=== PATIENT | male | born 1980 | race African-American/Black ===

== ENCOUNTER 2019-12-11 08:51 | Emergency (ER) | payer OTHER ==
[~2019-12-11] VITALS: Ht 170.2 cm; Wt 73.9 kg
[2019-12-11 10:24] LABS: AMPHETAMINES SCREEN,URINE NEGATIVE (NEGATIVE); PHENCYCLIDINE SCREEN,URINE NEGATIVE (NEGATIVE)
[2019-12-11 10:25] LABS: BENZODIAZEPINES SCREEN,URINE NEGATIVE (NEGATIVE)
[2019-12-11 10:28] LABS: BILIRUBIN,URINE NEGATIVE (NEGATIVE); CLARITY,URINE HAZY (CLEAR); COLOR,URINE YELLOW (YELLOW); KETONES,URINE NEGATIVE (NEGATIVE); LEUKOCYTE ESTERASE ,URINE NEGATIVE (NEGATIVE); NITRITE,URINE NEGATIVE (NEGATIVE); PROTEIN,URINE DIPSTICK NEGATIVE (NEGATIVE); URINE UROBILINOGEN 1 mg/dL (0.2 - 1); WBC,URINE (MAN) 0-5 /HPF (0-5)
[2019-12-11 10:29] LABS: BACTERIA,URINE FEW /HPF; EPITHELIAL CELLS,URINE FEW /LPF; RBC,URINE 0-5 /HPF (0-5)
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
== END 2019-12-11 10:55 | disposition home or self-care (01) ==
LOC: ER 09:50
DX: R30.0 Dysuria (principal); F99 Mental disorder, not otherwise specified
CPT/HCPCS: 80307; 81001; 87086; 99283

== ENCOUNTER 2019-12-18 19:00 | Emergency (ER) | payer OTHER ==
[~2019-12-18] VITALS: Ht 170.2 cm; Wt 73.9 kg
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
--- OUTSIDE RECORDS SUMMARY | 2019-12-18 19:52 | XMS REPORT | Continuity of Care Document ---
Author Author [facility] Organization [facility] Address [address] [place] [address] Phone Unavailable Care Team Providers Care Pathology Supervisor Name Role Phone NONSTAFF PCP Unavailable Valery Lopez Attphys MARINA SILVER M.D. Attphys Unavailable SHINE MITCHELL M.D. Attphys Unavailable Shine Mitchell Attphys Kevin Park Attphys Niall Montejo Attphys Payers Payer Name Policy Type Policy Number Effective Date Expiration Date S ziyad [employer] [id number] 2011 00:00:00 2020 00:00:00 [facility] Problems Condition Name Condition Details Condition Category Status Onset Date Resolution Date Last Treatment Date Treating Clinician Comments Source PIEDAD WHITTENSC H Active 09/30/2019 [facility] Diagnosis Active 2019-09-30 00:00:00 2019-10-07 21:56:00 Lakeisha Pike RIGHT LEG PAIN RIGH T LEG PAIN Active 01/25/2016 [facility] Diagnosis Active 2016-01-25 00:00:00 2016-01-25 17:55:00 [facility] Dys[facility] Problem Active [facility] Hyperprolactinemia Hyperprolactinemia Problem Active [facility] History of Cellulitis, leg History of Cellulitis, leg Problem Resolved [facility] Schizophrenia Schizophrenia Problem Active [facility] Depression Depression Problem Active [facility] Hypothyroidism Hypothyroidism Problem Active [facility] Hypogonadotropic hypogonadism Hypogonadotropic hypogonadism Problem Active [facility] ACTH elevation ACTH elevation Problem Active [facility] Follow up Follow up Problem Active [facility] Other specified disorders of nose and nasal sinuses Other specified disorders of nose and nasal sinuses 08/19/2017 [id number] Problem 2017-08-19 12:39:51 In domi Pike BACK,SIDE/NECK PAIN BACK ,SIDE/NECK PAIN Active [facility] Diagnosis Active 2013-12-16 09:46:00 [facility] BACK/SIDE/NECK PAIN BACK /SIDE/NECK PAIN Active [facility] Diagnosis Active 2014-01-07 07:52:00 [facility] Hyperprolactinemia Hype rprolactinemia 05/17/2017 08/19/2017 [id number] Problem 2017-05-17 05:25:07 2017-08-19 12:39:51 2017-08-19 12:39:51 [facility] Discharge Diagnosis: Cellulitis of leg, right Discharge Diagnosis: Cellulitis of leg, right 01/25/2016 01/28/2016 [facility] Problem 2016-01-25 05:00:00 2016-01-28 03:48:01 2016-01-28 03:48:01 [facility] Allergies, Adverse Reactions, Alerts Allergy Name Allergy Type Status Severity Reaction(s) Onset Date Inacti ve Date Treating Clinician Comments Source haloperidol DA Active U 2019-10-06 00:00:00 [facility] Haldol Haldol Active [facility] damaris Family History Family Member Diagnosis Comments Start Date Stop Date Source Mother Family history of hypertension [facility] Social History Social Habit Start Date Stop Date Quantity Comments Source Sex Assigned At 1980 00:00:00 1980 00:00:00 Male [facility] Smoking Status Start Date Stop Date Source Smokes tobacco daily (finding) [facility] Social History 2016-01-25 21:06:47 2016-01-25 21:06:47 [facility] Medications Ordered Medication Name Filled Medication Name Start Date Stop Da te Current Medication? Ordering Clinician Indication Dosage Frequency Signature (SIG) Comments Components Source Magnesium Sulfate 2019-10-01 22:21:00 No 2 gm, Route: IV, ONCE, Dosing Weight 72.727, kg, Priority: STAT, Start date: 10/01/19 17:21:00 CDT, Stop date: 10/01/19 17:21:00 CDT Varghese diallo Shahzad Testosterone 20.25 MG/ACT (1.62%) Transdermal Gel Test osterone 20.25 MG/ACT (1.62%) Transdermal Gel 2019-01-30 00:00:00 Yes MARINA SILVER M.D. Apply 1 pump press to one upper arm and shoulder, then apply 1 pump press to the opposite upper arm and shoulder once daily in the morning [facility] Venlafaxine HCl ER 150 MG Oral Capsule Extended Releas e 24 Hour Venlafaxine HCl ER 150 MG Oral Capsule Extended Release 24 Hour 2017-09-12 00:00:00 Yes SHINE MITCHELL M.D. QD TAKE 1 CAPSULE ONCE DAILY WITH FOOD. [facility] traZODone HCl - 100 MG Oral Tablet traZODone HCl - 100 MG Or al Tablet 2017-09-12 00:00:00 Yes SHINE MITCHELL M.D. 1 TAKE 1 TABLET AT BEDTIME. [facility] clindamycin 300 mg oral capsule 2016-01-25 23:19:00 Yes 300 mg = 1 cap, PO, Q6H, X 14 day, # 56 cap, 0 Refill(s) Lakeisha Pike Clindamycin 2016-01-25 22:52:00 No Notes: (clindamycin 150 mg/1 ml (600 mg/4 ml VL) INJ) (Same As: Cleocin) Lakeisha Pike Motrin 2016-01-25 17:17:00 No Notes: (Same as: Motrin) "Do Not Crush" Take with food. Lakeisha Pike Acetaminophen 300 MG / Codeine Phosphate 30 MG Oral Tablet [Tylenol with Codeine #3] 2016-01-25 17:17:00 No Notes: Do not exceed 4gm/day of acetaminophen. (Same as: Tylenol with Codeine # 3) Lakeisha Pike Benztropine Mesylate 2 MG Oral Tablet Benztropine Mesylate 2 MG Ora l Tablet Yes 1 Q0.3333D TAKE 1 TABLET 3 TIMES DAILY [facility] Depakote 500 MG Oral Tablet Delayed Release Depakote 5 00 MG Oral Tablet Delayed Release Yes Q0.3333D TAKE 1 TABLET 3 TIMES DAILY . [facility] Lisinopril 20 MG Oral Tablet Lisinopril 20 MG Oral Tablet Yes [facility] Singulair 10 MG Oral Tablet Singulair 10 MG Oral Tablet Yes [facility] Levothyroxine Sodium 25 MCG Oral Tablet Levothyroxine Sodium 25 MCG Oral Tablet Yes MARINA SILVER M.D. 1 QD TAKE 1 TABLET DAILY. [facility] Vital Signs Vital Name Observation Time Observation Value Comments Source Weight 2019-12-11 09:32:00 163 [lb_av] [facility] BMI (Body Mass Index) 2019-12-11 09:32:00 25.5 kg/m2 [facility] Temperature Oral (F) 2019-10-02 23:28:00 99.2 F [facility] Heart Rate 2019-10-02 23:28:00 [facility] Respitory Rate 2019-10-02 23:28:00 [facility] [place] Systolic (mm Hg) 2019-10-02 23:28:00 Jose M [facility] [place] Diastolic (mm Hg) 2019-10-02 23:28:00 [facility] Temperature Oral (F) 2019-10-02 18:15:00 98.4 F [facility] Heart Rate 2019-10-02 18:15:00 [facility] Respitory Rate 2019-10-02 18:15:00 [facility] Systolic (mm Hg) 2019-10-02 18:15:00 Jose M [facility] [place] Diastolic (mm Hg) 2019-10-02 18:15:00 [facility] [place] Heart Rate 2019-10-02 16:00:00 [facility] Respitory Rate 2019-10-02 16:00:00 [facility] [place] Systolic (mm Hg) 2019-10-02 16:00:00 Jose M rial [facility] Diastolic (mm Hg) 2019-10-02 16:00:00 Mem [facility] Temperature Oral (F) 2019-10-02 12:20:00 98.1 F [facility] Height 2019-09-30 22:50:00 172.72 cm [facility] BMI Calculated 2019-09-30 22:50:00 Lan Rendon Weight 2019-09-30 22:50:00 [facility] BP Systolic 2019-02-05 10:04:00 124 mm[Hg] Location: LUE; Positi on: Sitting [facility] BP Diastolic 2019-02-05 10:04:00 79 mm[Hg] Location: LUE; Positi on: Sitting [facility] Height 2019-02-05 10:04:00 69 [in_us] [facility] Weight 2019-02-05 10:04:00 215 [lb_av] [facility] Body Mass Index Calculated 2019-02-05 10:04:00 31.75 kg/m2 [facility] Temperature 2019-02-05 10:04:00 97.2 [degF] Method: Temporal [facility] Heart Rate 2019-02-05 10:04:00 72 /min Location: L Brachial Artery; Quality: Normal [facility] Respiration Rate 2019-02-05 10:04:00 14 /min Quality: Normal [facility] O2 SAT 2019-02-05 10:04:00 98 % Source: RA [facility] BP Systolic 2018-03-13 10:38:00 118 mm[Hg] Location: RUE; Positi on: Sitting [facility] BP Diastolic 2018-03-13 10:38:00 75 mm[Hg] Location: RUE; Positi on: Sitting [facility] Height 2018-03-13 10:38:00 69 [in_us] [facility] Weight 2018-03-13 10:38:00 247.25 [lb_av] [facility] Body Mass Index Calculated 2018-03-13 10:38:00 36.51 kg/m2 [facility] Temperature 2018-03-13 10:38:00 97.8 [degF] Method: Tympanic [facility] Heart Rate 2018-03-13 10:38:00 87 /min [facility] Respiration Rate 2018-03-13 10:38:00 16 /min [facility] BP Systolic 2018-01-22 08:38:00 130 mm[Hg] Location: LUE; Positi on: Sitting [facility] BP Diastolic 2018-01-22 08:38:00 88 mm[Hg] Location: NORA; Positi on: Sitting [facility] Height 2018-01-22 08:38:00 69 [in_us] [facility] Weight 2018-01-22 08:38:00 240.25 [lb_av] [facility] Body Mass Index Calculated 2018-01-22 08:38:00 35.48 kg/m2 [facility] Temperature 2018-01-22 08:38:00 96.9 [degF] Method: Tympanic [facility] Heart Rate 2018-01-22 08:38:00 80 /min [facility] Respiration Rate 2018-01-22 08:38:00 15 /min [facility] BP Systolic 2017-12-26 10:11:00 137 mm[Hg] Location: NORA; Positi on: Sitting [facility] BP Diastolic 2017-12-26 10:11:00 84 mm[Hg] Location: NORA; Positi on: Sitting [facility] Height 2017-12-26 10:11:00 69 [in_us] [facility] Weight 2017-12-26 10:11:00 245 [lb_av] [facility] Body Mass Index Calculated 2017-12-26 10:11:00 36.18 kg/m2 [facility] Temperature 2017-12-26 10:11:00 98.8 [degF] [facility] Heart Rate 2017-12-26 10:11:00 101 /min [facility] Respiration Rate 2017-12-26 10:11:00 16 /min [facility] BP Systolic 2017-09-12 10:47:00 130 mm[Hg] Location: RUAshley; Positi on: Sitting [facility] BP Diastolic 2017-09-12 10:47:00 90 mm[Hg] Location: RUAshley; Positi on: Sitting [facility] Height 2017-09-12 10:47:00 69 [in_us] [facility] Weight 2017-09-12 10:47:00 246 [lb_av] [facility] Body Mass Index Calculated 2017-09-12 10:47:00 36.33 kg/m2 [facility] Heart Rate 2017-09-12 10:47:00 91 /min [facility] Respiration Rate 2017-09-12 10:47:00 14 /min [facility] BP Systolic 2017-06-05 09:08:00 118 mm[Hg] Location: LUE; Positi on: Sitting [facility] BP Diastolic 2017-06-05 09:08:00 80 mm[Hg] Location: LUE; Positi on: Sitting [facility] Height 2017-06-05 09:08:00 69 [in_us] [facility] Weight 2017-06-05 09:08:00 248.375 [lb_av] [facility] Body Mass Index Calculated 2017-06-05 09:08:00 36.68 kg/m2 [facility] Temperature 2017-06-05 09:08:00 98.2 [degF] Method: Tympanic [facility] Heart Rate 2017-06-05 09:08:00 88 /min [facility] Respiration Rate 2017-06-05 09:08:00 16 /min [facility] BP Systolic 2017-05-01 10:19:00 129 mm[Hg] Location: RUE; Positi on: Sitting [facility] BP Diastolic 2017-05-01 10:19:00 85 mm[Hg] Location: RUE; Positi on: Sitting [facility] Height 2017-05-01 10:19:00 69 [in_us] [facility] Weight 2017-05-01 10:19:00 249.25 [lb_av] [facility] Body Mass Index Calculated 2017-05-01 10:19:00 36.81 kg/m2 [facility] Temperature 2017-05-01 10:19:00 97.4 [degF] Method: Tympanic [facility] Heart Rate 2017-05-01 10:19:00 73 /min [facility] Respiration Rate 2017-05-01 10:19:00 16 /min [facility] BP Systolic 2017-04-03 09:52:00 129 mm[Hg] Location: RUE; Positi on: Sitting [facility] BP Diastolic 2017-04-03 09:52:00 85 mm[Hg] Location: RUE; Positi on: Sitting [facility] Height 2017-04-03 09:52:00 69 [in_us] [facility] Weight 2017-04-03 09:52:00 247.375 [lb_av] [facility] Body Mass Index Calculated 2017-04-03 09:52:00 36.53 kg/m2 [facility] Temperature 2017-04-03 09:52:00 97.5 [degF] Method: Tympanic [facility] Heart Rate 2017-04-03 09:52:00 80 /min [facility] Respiration Rate 2017-04-03 09:52:00 16 /min [facility] Systolic (mm Hg) 2016-01-25 23:20:00 Jose M rial [facility] Diastolic (mm Hg) 2016-01-25 23:20:00 [facility] [place] Respitory Rate 2016-01-25 23:20:00 [facility]ori [facility] Heart Rate 2016-01-25 23:20:00 [facility] [place] Temperature Oral (F) 2016-01-25 23:20:00 98.0 F [facility] Weight 2016-01-25 17:10:00 [facility] [place] Height 2016-01-25 17:10:00 175.26 cm [facility] BMI Calculated 2016-01-25 17:10:00 [facility] [place] Respitory Rate 2016-01-25 17:10:00 [facility] [place] Heart Rate 2016-01-25 17:10:00 [facility] [place] Systolic (mm Hg) 2016-01-25 17:10:00 Jose M rial [facility] Diastolic (mm Hg) 2016-01-25 17:10:00 Mem [facility] Temperature Oral (F) 2016-01-25 17:10:00 98.1 F [facility] Procedures Procedure Date / Time Performed Performing Clinician Sour e [QL] TESTOSTERONE, TOTAL 2019-05-15 00:00[facility]00 [facility]] ACTH, PLASMA 2019-02-05 00:00:00 [facility] [[facility]] CORTISOL, TOTAL 2019-02-05 00:00:00 Univer [facility] [[facility]] PROLACTIN 2019-02-05 00:00:00 [place] [facility] [[facility]] TSH, 3RD GENERATION W/REFLEX TO FT4 2019-02-05 00:00:00 [facility] [[facility]] TESTOSTERONE, TOTAL 2019-01-30 00:00:00 [facility] [QL] Hemoglobin and Hematocrit 2018-03-13 00:00:00 [facility] [[facility]] TESTOSTERONE, FREE AND TOTAL, LC/MS/MS 2018-03-13 00:00:00 [facility] [QL] BASIC METABOLIC PANEL W/EGFR 2018-03-13 00:00:00 [facility] [H] Cortisol Saliva 2018-01-22 00:00:00 [facility] [H] Cortisol Free Urine 24 Hour 2018-01-22 00:00:00 [facility] [LH] CBC (without differential) 2018-01-22 00:00:00 [facility] [QL[facility]] PSA, TOTAL 2018-01-22 00:00:00 [facility] [QH] SEX HORMONE BINDING GLOBULIN 2018-01-22 00:00:00 [facility] [H] Cortisol Free Urine 24 Hour 2017-12-31 00:00:00 [facility] [[facility]] PROLACTIN 2017-12-26 00:00:00 [place] [facility] [[facility]] TSH, 3RD GENERATION W/REFLEX TO FT4 2017-12-26 00:00:00 [facility] [[facility]] T4, FREE 2017-12-26 00:00:00 [place] [facility] [[facility]] TESTOSTERONE, FREE AND TOTAL, LC/MS/MS 2017-12-26 00:00:00 [facility] [QL] ACTH, PLASMA 2017-12-26 00:00:00 [facility] [[facility]] CORTISOL, TOTAL 2017-12-26 00:00:00 [facility] [QL[facility]] IGF-1 [Somatomedin C] 2017-12-26 00:00:00 [facility] [[facility]] FSH 2017-12-26 00:00:00 [place] [facility] [[facility]] LH 2017-12-26 00:00:00 [place] [facility] [[facility]] TSH, 3RD GENERATION W/REFLEX TO FT4 2017-09-12 00:00:00 [facility] [QL[facility]] T4, FREE 2017-09-12 00:00:00 [facility] [[facility]] PROLACTIN 2017-09-12 00:00:00 [facility] [H] Macroprolactin 2017-09-12 00:00:00 [facility] [QL[facility]] TSH, 3RD GENERATION W/REFLEX TO FT4 2017-06-05 00:00:00 [facility] [QLH] T4, FREE 2017-06-05 00:00:00 [facility] [QH] SEX HORMONE BINDING GLOBULIN 2017-06-05 00:00:00 [facility] [[facility]] THYROID PEROXIDASE ANTIBODIES 2017-06-05 00:00:00 [facility] [[facility]] TESTOSTERONE, FREE AND TOTAL, LC/MS/MS 2017-05-01 00:00:00 [facility] [[facility]] TSH, 3RD GENERATION W/REFLEX TO FT4 2017-05-01 00:00:00 [facility] [QL[facility]] FSH 2017-05-01 00:00:00 [place] [facility] [QL[facility]] T4, FREE 2017-05-01 00:00:00 [place] [facility] [QL[facility]] THYROID PEROXIDASE ANTIBODIES 2017-05-01 00:00:00 [facility] [QL[facility]] LH 2017-05-01 00:00:00 [place] [facility] MRI Brain Pituitary w/wo contrast [id number] 2017-05-01 00:00:00 [facility] [QL[facility]] ACTH, PLASMA 2017-04-12 00:00:00 [facility] [QLH] T4, FREE 2017-04-03 00:00:00 [facility] [QL[facility]] TSH, 3RD GENERATION W/REFLEX TO FT4 2017-04-03 00:00:00 [facility] [QL[facility]] T3, TOTAL 2017-04-03 00:00:00 [place] [facility] [QL[facility]] PROLACTIN 2017-04-03 00:00:00 [place] [facility] [QL[facility]] TESTOSTERONE, FREE AND TOTAL, LC/MS/MS 2017-04-03 00:00:00 [facility] [[facility]] ACTH, PLASMA 2017-04-03 00:00:00 [facility] [QL[facility]] FSH 2017-04-03 00:00:00 [facility] [QL[facility]] CORTISOL, TOTAL 2017-04-03 00:00:00 [facility] [QLH] LH 2017-04-03 00:00:00 [facility] [QLH] IGF-1 [Somatomedin C] 2017-04-03 00:00:00 [facility] [H] Macroprolactin 2017-04-03 00:00:00 [facility] Plan of Care Planned Activity Planned Date Details Comments Source Diagnostic Test Pending 2019-05-15 00:00:00 [QLH] TESTOSTERO NE, TOTAL [code = [QLH] TESTOSTERONE, TOTAL] [facility] Diagnostic Test Pending 2018-06-11 00:00:00 [QLH] Hemoglobin and Hematocrit [code = [QLH] Hemoglobin and Hematocrit] [facility] Diagnostic Test Pending 2018-06-11 00:00:00 [QLH] TESTOSTERO NE, FREE AND TOTAL, LC/MS/MS [code = [QLH] TESTOSTERONE, FREE AND TOTAL, LC/MS/MS] [facility] Diagnostic Test Pending 2018-06-11 00:00:00 [QLH] Hemoglobin and Hematocrit [code = [QLH] Hemoglobin and Hematocrit] [facility] Diagnostic Test Pending 2018-06-11 00:00:00 [QLH] TESTOSTERO NE, FREE AND TOTAL, LC/MS/MS [code = [QLH] TESTOSTERONE, FREE AND TOTAL, LC/MS/MS] [facility] Diagnostic Test Pending 2017-12-31 00:00:00 [H] Cortisol [place] e Urine 24 Hour [code = [H] Cortisol Free Urine 24 Hour] [facility] Diagnostic Test Pending 2017-06-12 00:00:00 [QLH] T4, FREE [ code = [QLH] T4, FREE] [facility] Diagnostic Test Pending 2017-06-12 00:00:00 [QLH] TSH, 3RD G ENERATION W/REFLEX TO FT4 [code = [QLH] TSH, 3RD GENERATION W/REFLEX TO FT4] [facility] Diagnostic Test Pending 2017-06-12 00:00:00 [QLH] THYROID PE ROXIDASE ANTIBODIES [code = [QLH] THYROID PEROXIDASE ANTIBODIES] [facility] Diagnostic Test Pending 2017-06-12 00:00:00 [QLH] T4, FREE [ code = [QLH] T4, FREE] [facility] Diagnostic Test Pending 2017-06-12 00:00:00 [QLH] TSH, 3RD G ENERATION W/REFLEX TO FT4 [code = [QLH] TSH, 3RD GENERATION W/REFLEX TO FT4] [facility] Diagnostic Test Pending 2017-06-12 00:00:00 [QLH] THYROID PE ROXIDASE ANTIBODIES [code = [QL] THYROID PEROXIDASE ANTIBODIES] [facility] Instructions Pelvic Pain [facility] Encounters Start Date/Time End Date/Time Encounter Type Admission Type Att[facility] Care Department Encounter ID Source 2019-12-11 09:50:00 2019-12-11 10:55:00 Departed Emergency Room [facility] [id number] [facility] 2019-09-30 17:48:17 2019-10-02 21:45:00 Outpatient Joanna Lopez [facility] [id number] 2019-09-30 17:48:00 2019-09-30 17:48:00 Emergency E [facility]SE [facility] [id number] [facility] 2019-06-04 10:00:00 2019-06-04 10:00:00 Appointment; MARINA SILVER M .D. CILLO, MARC, M.D. [facility], [address] [id number] [facility] 2019-02-05 09:40:00 2019-02-05 09:40:00 Appointment; MARINA SILVER M .D. CILLO, MARC, M.D. [facility], [address] [id number] [facility] 2018-03-13 11:00:00 2018-03-13 11:00:00 Appointment; MARINA SILVER M .D. CILLO, MARC, M.D. [facility] Endocrinology - [facility] [id number] [facility] 2018-02-24 09:00:00 2018-02-24 09:00:00 Appointment; MARINA SILVER M .D. CILLO, MARC, M.D. [facility] [id number] [facility] 2018-01-22 09:00:00 2018-01-22 09:00:00 Appointment; SHINE MITCHELL M.D. ZHANG, HONGJIE, M.D. [facility] [id number] [facility] 2017-12-26 09:40:00 2017-12-26 09:40:00 Appointment; SHINE MITCHELL M.D. ZHANG, HONGJIE, M.D. [facility] [place] [id number] [facility] 2017-09-12 11:20:00 2017-09-12 11:20:00 Appointment; SHINE MITCHELL M.D. ZHANG, HONGJIE, M.D. [facility], [id number] [facility] 2017-06-05 09:20:00 2017-06-05 09:20:00 Appointment; SHINE MITCHELL M.D. ZHANG, HONGJIE, M.D. [facility], [id number] [facility] 2017-05-13 11:44:00 2017-05-13 23:59:00 Outpatient Shine Mitchell [id number] 2017-05-01 10:00:00 2017-05-01 10:00:00 Appointment; SHINE MITCHELL M.D. ZHANG, HONGJIE, M.D. [facility], [id number] [facility] 2017-04-24 10:00:00 2017-04-24 10:00:00 Appointment; SHINE MITCHELL M.D. ZHANG, HONGJIE, M.D. [facility] [id number] [facility] 2017-04-03 10:40:00 2017-04-03 10:40:00 Appointment; SHINE MITCHELL M.D. ZHANG, HONGJIE, M.D. [facility], [id number] [facility] 2016-01-25 12:06:00 2016-01-25 19:16:00 Outpatient Delvin Mera [facility] [id number] 2013-12-08 10:30:00 2014-01-06 23:59:00 Outpatient Maricel Montejo [facility] [id number] Results Test Description Test Time Test Comments Results Result Comments Source Urine color determination 2019-12-11 09:39:00 Test Item Urine Color (test code = 5778-6) YELLOW YELLOW [facility] Center[facility] [id number] 09:39:00* Test Item Value Reference Range Interpretation Comments Urine Clarity (test code = 74160-6) HAZY CLEAR [facility] Urine by Test strip 2019-12-11 09:39:00* Test Item Value Reference Range Interpretation Comments Urine Specific [place] (test code = 5811-5) >=1.030 1.010-1.02 5 [facility] CenterU[facility] pH measurement by automated test iuejv0949-15-33 09:39:00* Test Item Value Reference Range Interpretation Comments Urine pH (test code = 27493-5) 7 5-7 [facility] CenterU[facility] leukocyte esterase detection by yjgokqyt7581-99-56 09:39:00* Test Item Value Reference Range Interpretation Comments Urine Leukocyte Esterase (test code = 5799-2) NEGATIVE NEGATIVE [facility] Center[facility] nitrite uwetxrmdm7134-70-65 09:39:00* Test Item Value Reference Range Interpretation Comments Urine Nitrite (test code = 45562-2) NEGATIVE NEGATIVE [facility] CenterU[facility] protein measurement by test strip (mass/volume)2019-12-11 09:39:00* Test Item Value Reference Range Interpretation Comments Urine Protein (test code = 5804-0) NEGATIVE NEGATIVE [facility] glucose jdgdbnavu3516-19-47 09:39:00* Test Item Value Reference Range Interpretation Comments Urine Glucose (UA) (test code = 2349-9) NEGATIVE NEGATIVE [facility] CenterU[facility] ketones detection by automated test lmoqe8705-16-25 09:39:00* Test Item Value Reference Range Interpretation Comments Urine Ketones (test code = 09255-3) NEGATIVE NEGATIVE [facility] Center[facility] opiates screening [id number] 09:39:00* Test Item Value Reference Range Interpretation Comments Urine Opiates Screen (test code = 85432-9) NEGATIVE NEGATIVE ALL TESTS PERFORMED MANUALLY ON BIORAD TOX/SEE TESTCook Children's Medical CenterBarbiturates screen, fofzj0890-22-83 09:39:00* Test Item Value Reference Range Interpretation Comments Urine Barbiturates Screen (test code = 550502296) NEGATIVE NEGA TIVE [facility] CenterUrine phencyclidine detection by screening gxufou5304-70-52 09:39:00* Test Item Value Reference Range Interpretation Comments Urine Phencyclidine Screen (test code = 34658-7) NEGATIVE NEGAT MUMTAZ [facility] CenterUrine amphetamines detection by screen method > 1000 ng/vY7049-45-31 09:39:00* Test Item Value Reference Range Interpretation Comments Urine Amphetamines Screen (test code = 23413-7) NEGATIVE NEGATI VE [facility] CenterFluoroscopic procedure less than one hour evvkwcwr4938-36-05 09:39:00* Test Item Value Reference Range Interpretation Comments Urine Methamphetamines Screen (test code = Urine Metha mphetamines Screen) NEGATIVE NEGATIVE [facility] CenterUrine benzodiazepines detection by screening edmthv8358-96-64 09:39:00* Test Item Value Reference Range Interpretation Comments Urine Benzodiazepines Screen (test code = 61601-3) NEGATIVE NEG ATIVE [facility] CenterUrine cocaine measurement (mass/volume) 2019-12-11 09:39:00* Test Item Value Reference Range Interpretation Comments Urine Cocaine Screen (test code = 3398-5) NEGATIVE NEGATIVE [facility] CenterUrine cannabinoids detection by screening pxwxou8439-10-64 09:39:00* Test Item Value Reference Range Interpretation Comments Urine Cannabinoids Screen (test code = 09420-7) NEGATIVE NEGATI VE THESE RESULTS ARE FOR MEDICAL TREATMENT ONLYTHIS REPORT CONTAINS UNCONFIR MED SCREENING RESULTS*POSITIVE RESULTS WILL BE CONFIRMED BY REFERENCE LAB UPON R EQUEST CUT-OFFDRUG CLASS CONCENTRATION ng/mLAmphetamines 1000Methamphetamines 1000Cocaine 300Opiate 300Phencyc lidine 25Cannabinoid 50Barbiturates 300Benzodiazepine 300Methadone 300[facility] methadone yvibdr4266-46-53 09:39:00* Test Item Value Reference Range Interpretation Comments Urine Methadone Screen (test code = 99805-7) NEGATIVE NEGATIVE THESE RESULTS ARE FOR MEDICAL TREATMENT ONLYTHIS REPORT CONTAINS UNCONFIR MED SCREENING RESULTS*POSITIVE RESULTS WILL BE CONFIRMED BY REFERENCE LAB UPON R EQUEST CUT-OFFDRUG CLASS CONCENTRATION ng/mLAmphetamines 1000Methamphetamines 1000Cocaine Metabolite 300Opiate 300Phencyc lidine 25Cannabinoid 50Barbiturates 300Benzodiazepine 300Methadone 300[facility] HospitalU[facility] urobilinogen measurement by test strip (mass/volume)2019-12-11 09:39:00* Test Item Value Reference Range Interpretation Comments Urine Urobilinogen (test code = 43313-6) 1 0.2-1 [facility] CenterU[facility] total bilirubin measurement (mass/volume)2019-12-11 09:39:00* Test Item Value Reference Range Interpretation Comments Urine Bilirubin (test code = 1978-6) NEGATIVE NEGATIVE [facility] CenterUrine erythrocytes otpiaurfw3555-75-24 09:39:00* Test Item Value Reference Range Interpretation Comments Urine Blood (test code = 26575-5) NEGATIVE NEGATIVE [facility] CenterAutomated urine sediment leukocyte count by microscopy (number/high power field)2019-12-11 09:39:00* Test Item Value Reference Range Interpretation Comments Urine WBC (test code = 5821-4) 0-5 0-5 [facility] CenterErythrocytes detection in urine sediment by light oorkrwzxka5428-61-64 09:39:00* Test Item Value Reference Range Interpretation Comments Urine RBC (test code = 22774-4) 0-5 0-5 [facility] CenterBacteria detection in urine sediment by light ewteinbzkl5960-68-89 09:39:00* Test Item Value Reference Range Interpretation Comments Urine Bacteria (test code = 47170-1) FEW NONE [facility] CenterEpithelial cells detection in urine sediment by light yhiiqimuxj1529-67-59 09:39:00* Test Item Value Reference Range Interpretation Comments Urine Epithelial Cells (test code = 01483-6) FEW NONE [facility] CenterURINALYSIS [id number] 20:03:00* Test Item Value Reference Range Interpretation Comments UA COLOR (test code = COLU) YELLOW YELLOW UA APPEARANCE (test code = APPU) CLEAR CLEAR UA GLUCOSE DIPSTICK (test code = DGLUU) NEGATIVE mg/dL NEGATIVE UA BILIRUBIN DIPSTICK (test code = BILU) NEGATIVE mg/dL NEGATIVE UA KETONE DIPSTICK (test code = KETU) NEGATIVE mg/dL NEGATIVE UA SPECIFIC GRAVITY (test code = SGU) 1.032 1.001-1.035 UA BLOOD DIPSTICK (test code = ERICH) Negative mg/dL NEGATIVE UA PH DIPSTICK (test code = JENNA) 6.0 5.0-8.0 UA PROTEIN DIPSTICK (test code = PROU) 20 (Trace) mg/dL NEGATIVE A UA UROBILINIOGEN DIPSTICK (test code = URO) 2.0 (1+) mg/dL NEGATIVE A UA NITRITE DIPSTICK (test code = LEONELA) NEGATIVE NEGATIVE UA LEUKOCYTE ESTERASE W REFLEX (test code = LEUUR) NEGATIVE Davin/uL NEGATIVE UA WBC (test code = WBCU) 0-5 per HPF 0-5 UA RBC (test code = RBCU) 0-2 #/HPF 0-5 UA EPITHELIAL CELLS (test code = EPIU) FEW per HPF FEW UA BACTERIA (test code = BACU) FEW #/HPF NONE A UA MUCUS (test code = MUCU) MANY #/LPF FEW A Urine Source? Clean CatchDRUGS OF ABUSE SCREEN [id number] 20:03:00* Test Item Value Reference Range Interpretation Comments URN COCAINE (test code = COCAURN) NEGATIVE <300 ng/mL URN CANNABINOIDS (test code = CANNABURN) POSITIVE <50 ng/mL A This test provides only a preliminary test result. A morespecific alternate chemical method must be used in order toobtain a confirmed analytical result. Gas chromatography/mass spectrometry (GC/MS) is thepreferred confirmatory method. Other chemical confirmationmethods are available. Clinical consideration and professional judgment should be applied to any drug of abusetest result, particularly when preliminary positive resultsare used.Unconfirmed screening results must not be used fornon-medical purposes (e.g., employment testing, legaltesting). URN AMPHETAMINE (test code = AMPHETURN) NEGATIVE <1000 ng/mL URN BARBITURATE (test code = BARBITURN) NEGATIVE <200 ng/mL URN BENZODIAZEPINE (test code = BENZOURN) NEGATIVE <200 ng/mL URN OPIATES (test code = OPIATURN) NEGATIVE <300 ng/mL URN PHENCYCLIDINE (PCP) (test code = PHENCURN) NEGATIVE <25 ng/ mL URN METHADONE (test code = METHAURN) NEGATIVE <300 ng/mL Urine Source? Clean CatchURINALYSIS [id number] 19:43:00* Test Item Value Reference Range Interpretation Comments UA COLOR (test code = COLU) YELLOW YELLOW UA APPEARANCE (test code = APPU) CLEAR CLEAR UA GLUCOSE DIPSTICK (test code = DGLUU) NEGATIVE mg/dL NEGATIVE UA BILIRUBIN DIPSTICK (test code = BILU) NEGATIVE mg/dL NEGATIVE UA KETONE DIPSTICK (test code = KETU) NEGATIVE mg/dL NEGATIVE UA SPECIFIC GRAVITY (test code = SGU) 1.032 1.001-1.035 UA BLOOD DIPSTICK (test code = ERICH) Negative mg/dL NEGATIVE UA PH DIPSTICK (test code = JENNA) 6.0 5.0-8.0 UA PROTEIN DIPSTICK (test code = PROU) 20 (Trace) mg/dL NEGATIVE A UA UROBILINIOGEN DIPSTICK (test code = URO) 2.0 (1+) mg/dL NEGATIVE A UA NITRITE DIPSTICK (test code = LEONELA) NEGATIVE NEGATIVE UA LEUKOCYTE ESTERASE W REFLEX (test code = LEUUR) NEGATIVE Davin/uL NEGATIVE UA WBC (test code = WBCU) 0-5 per HPF 0-5 UA RBC (test code = RBCU) 0-2 #/HPF 0-5 UA EPITHELIAL CELLS (test code = EPIU) FEW per HPF FEW UA BACTERIA (test code = BACU) FEW #/HPF NONE A UA MUCUS (test code = MUCU) MANY #/LPF FEW A Urine Source? Clean CatchDRUGS OF ABUSE SCREEN [id number] 19:43:00* Test Item Value Reference Range Interpretation Comments URN COCAINE (test code = COCAURN) <300 ng/mL URN CANNABINOIDS (test code = CANNABURN) <50 ng/mL URN AMPHETAMINE (test code = AMPHETURN) <1000 ng/mL URN BARBITURATE (test code = BARBITURN) <200 ng/mL URN BENZODIAZEPINE (test code = BENZOURN) <200 ng/mL URN OPIATES (test code = OPIATURN) <300 ng/mL URN PHENCYCLIDINE (PCP) (test code = PHENCURN) <25 ng/ mL URN METHADONE (test code = METHAURN) <300 ng/mL Urine Source? Clean CatchURINALYSIS [id number] 19:41:00* Test Item Value Reference Range Interpretation Comments UA COLOR (test code = COLU) YELLOW YELLOW UA APPEARANCE (test code = APPU) CLEAR CLEAR UA GLUCOSE DIPSTICK (test code = DGLUU) NEGATIVE mg/dL NEGATIVE UA BILIRUBIN DIPSTICK (test code = BILU) NEGATIVE mg/dL NEGATIVE UA KETONE DIPSTICK (test code = KETU) NEGATIVE mg/dL NEGATIVE UA SPECIFIC GRAVITY (test code = SGU) 1.032 1.001-1.035 UA BLOOD DIPSTICK (test code = ERICH) Negative mg/dL NEGATIVE UA PH DIPSTICK (test code = JENNA) 6.0 5.0-8.0 UA PROTEIN DIPSTICK (test code = PROU) 20 (Trace) mg/dL NEGATIVE A UA UROBILINIOGEN DIPSTICK (test code = URO) 2.0 (1+) mg/dL NEGATIVE A UA NITRITE DIPSTICK (test code = LEONELA) NEGATIVE NEGATIVE UA LEUKOCYTE ESTERASE W REFLEX (test code = LEUUR) NEGATIVE Davin/uL NEGATIVE UA WBC (test code = WBCU) per HPF 0-5 UA RBC (test code = RBCU) per HPF 0-5 UA EPITHELIAL CELLS (test code = EPIU) per HPF Few UA BACTERIA (test code = BACU) per HPF NONE Urine Source? Clean CatchDRUGS OF ABUSE SCREEN [id number] 19:41:00* Test Item Value Reference Range Interpretation Comments URN COCAINE (test code = COCAURN) <300 ng/mL URN CANNABINOIDS (test code = CANNABURN) <50 ng/mL URN AMPHETAMINE (test code = AMPHETURN) <1000 ng/mL URN BARBITURATE (test code = BARBITURN) <200 ng/mL URN BENZODIAZEPINE (test code = BENZOURN) <200 ng/mL URN OPIATES (test code = OPIATURN) <300 ng/mL URN PHENCYCLIDINE (PCP) (test code = PHENCURN) <25 ng/ mL URN METHADONE (test code = METHAURN) <300 ng/mL Urine Source? Clean CatchBASIC METABOLIC [id number] 12:21:00* Test Item Value Reference Range Interpretation Comments SODIUM (test code = NA) 143 mmol/L 136-145 N POTASSIUM (test code = K) 3.7 mmol/L 3.5-5.1 N CHLORIDE (test code = CL) 112.0 mmol/L 98-107 H CARBON DIOXIDE (test code = CO2) 30.0 mmol/L 21-32 N ANION GAP (test code = GAP) 4.7 10-20 L GLUCOSE (test code = GLU) 62 mg/dL 74-106 L BLOOD UREA NITROGEN (test code = BUN) 26 mg/dL 7-18 H GLOMERULAR FILTRATION RATE (test code = GFR) > 60 mL/min >=60 Estimated GFR by using Modified MDRD formula.Chronic kidney disease is defined as either kidney damageor GFR <60 mL/min/1.73 m2 for >3 months. CREATININE (test code = CREAT) 1.30 mg/dL 0.7-1.3 N BUN/CREATININE RATIO (test code = BUN/CREA) 19.4 10-20 N CALCIUM (test code = CA) 8.9 mg/dL 8.5-10.1 N HEPATIC FUNCTION [id number] 12:21:00* Test Item Value Reference Range Interpretation Comments TOTAL PROTEIN (test code = PROT) 7.0 gram/dL 6.4-8.2 N ALBUMIN (test code = ALB) 3.3 g/dL 3.4-5.0 L GLOBULIN (test code = GLOB) 3.7 gram/dL 2.7-4.2 N ALBUMIN/GLOBULIN RATIO (test code = A/G) 0.9 0.75-1.50 N BILIRUBIN TOTAL (test code = BILT) 0.50 mg/dL 0.0-1.0 N BILIRUBIN DIRECT (test code = BILD) 0.12 mg/dL 0.0-0.20 N SGOT/AST (test code = AST) 14 IUnit/L 15-37 L SGPT/ALT (test code = ALT) 15 IUnit/L 12-78 N ALKALINE PHOSPHATASE TOTAL (test code = ALKP) 34 IUnit/L 45-117 L Note change in reference range due to change in reagent. [id number] 12:21:00* Test Item Value Reference Range Interpretation Comments ALCOHOL (test code = ALC) < 3 mg/dL 0.0-3.0 N -- INTERPRETIVE DATA NOTE: POSITIVE SCREENING RESULTS SHOULD BE CONSIDERED PRESUMPTIVE.WHEN COLLECTED FOR MEDICAL PURPOSES ONLY. SPECIMEN WILL NOTBE COLLECTED BY CHAIN OF CUSTODY.IF A CONFIRMATION OF POSITIVE RESULTS IS DESIRED, ACONFIRMATION TEST MUST BE REQUESTED BY THE PHYSICIAN AT ANADDITIONAL CHARGE TO THE PATIENT. BASIC METABOLIC [id number] 12:07:00* Test Item Value Reference Range Interpretation Comments SODIUM (test code = NA) 143 mmol/L 136-145 N POTASSIUM (test code = K) 3.7 mmol/L 3.5-5.1 N CHLORIDE (test code = CL) 112.0 mmol/L 98-107 H CARBON DIOXIDE (test code = CO2) mmol/L 21-32 ANION GAP (test code = GAP) 10-20 GLUCOSE (test code = GLU) mg/dL 74-106 BLOOD UREA NITROGEN (test code = BUN) mg/dL 7-18 GLOMERULAR FILTRATION RATE (test code = GFR) mL/min >=60 CREATININE (test code = CREAT) mg/dL 0.7-1.3 BUN/CREATININE RATIO (test code = BUN/CREA) 10-20 CALCIUM (test code = CA) mg/dL 8.5-10.1 HEPATIC FUNCTION [id number] 12:07:00* Test Item Value Reference Range Interpretation Comments TOTAL PROTEIN (test code = PROT) gram/dL 6.4-8.2 ALBUMIN (test code = ALB) g/dL 3.4-5.0 GLOBULIN (test code = GLOB) gram/dL 2.7-4.2 ALBUMIN/GLOBULIN RATIO (test code = A/G) 0.75-1.50 BILIRUBIN TOTAL (test code = BILT) mg/dL 0.0-1.0 BILIRUBIN DIRECT (test code = BILD) mg/dL 0.0-0.20 SGOT/AST (test code = AST) IUnit/L 15-37 SGPT/ALT (test code = ALT) IUnit/L 12-78 ALKALINE PHOSPHATASE TOTAL (test code = ALKP) IUnit/L 45-117 [id number] 12:07:00* Test Item Value Reference Range Interpretation Comments ALCOHOL (test code = ALC) mg/dL 0-3 CBC W/O [id number] 12:01:00* Test Item Value Reference Range Interpretation Comments WHITE BLOOD CELL (test code = WBC) 5.4 K/mm3 4.5-12.5 N RED BLOOD CELL (test code = RBC) 4.34 mill/mm3 4.0-5.8 N HEMOGLOBIN (test code = HGB) 13.3 gram/dL 13.0-17.5 N HEMATOCRIT (test code = HCT) 42.5 % 42.0-52.0 N MEAN CELL VOLUME (test code = MCV) 96.1 fL 80-98 N MEAN CELL HGB (test code = MCH) 30.2 picogram 27.0-33.0 N MEAN CELL HGB CONCETRATION (test code = MCHC) 31.4 gram/dL 33.0-36. 0 L RED CELL DISTRIBUTION WIDTH (test code = RDW) 13.2 % 11.6-16. 2 N PLATELET COUNT (test code = PLT) 140 K/mm3 150-450 L MEAN PLATELET VOLUME (test code = MPV) 12.4 fL 6.7-11.0 H CBC W/O [id number] 11:55:00* Test Item Value Reference Range Interpretation Comments WHITE BLOOD CELL (test code = WBC) K/mm3 4.5-12.5 RED BLOOD CELL (test code = RBC) mill/mm3 4.0-5.8 HEMOGLOBIN (test code = HGB) 13.3 gram/dL 13.0-17.5 N HEMATOCRIT (test code = HCT) 42.5 % 42.0-52.0 N MEAN CELL VOLUME (test code = MCV) fL 80-98 MEAN CELL HGB (test code = MCH) picogram 27.0-33.0 MEAN CELL HGB CONCETRATION (test code = MCHC) gram/dL 33.0-36. 0 RED CELL DISTRIBUTION WIDTH (test code = RDW) % 11.6-16. 2 PLATELET COUNT (test code = PLT) K/mm3 150-450 MEAN PLATELET VOLUME (test code = MPV) fL 6.7-11.0 CARDIAC [id number] 22:19:46492Cdjdvohg HermannCARDIAC [id number] 22:19:00<0.02[facility]annCHEM [id number] 22:19:002.2[facility] RCWDWPFBQL9796-64-35 22:19:0070[facility] HermannCARDIAC KNJVWFT1192-47-27 23:49:50036Grkvuhmv HermannCHEM [id number] 23:49:0070[facility] HermannCHEM [id number] 23:49:0020[facility] HermannCHEM PIVJG7500-72-35 23:49:001.11 [facility] HermannCHEM [id number] 23:49:95248Bivdkgvz HermannCHEM PANEL 2019-09-30 23:49:004.3[facility] HermannCHEM UFIQX5449-93-01 23:49:96503Pbnubmzr HermannCHEM VNGEU3030-30-02 23:49:0029[facility] HermannCHEM ZHDPK8769-53-13 23:49:008.8[facility] HermannCHEM IJCLW4836-71-48 23:49:006.6[facility] HermannCHEM PMCYI6993-99-18 23:49:003.3[facility] HermannCHEM TVBPL3750-49-03 23:49:0016 [facility]annCHEM [id number] 23:49:0013[facility] HermannCHEM PANEL 2019-09-30 23:49:0033[facility] HermannCHEM VPPOZ2953-76-11 23:49:000.3[facility] HermannCHEM [id number] 23:49:005.3[facility] HermannCHEM OOIAN3790-63-34 23:49:00* Test Item Value Reference Range Interpretation Comments B/C Ratio (test code = B/C Ratio) 18 1 6-25 [facility]annCHEM IOURI3967-09-14 23:49:003.3[facility] HermannCHEM PANEL 2019-09-30 23:49:00* Test Item Value Reference Range Interpretation Comments A/G Ratio (test code = A/G Ratio) 1.0 1 0.7-1.6 [facility]annCHEM [id number] 23:49:0098[facility] HermannHEMATOLOGY 2019-09-30 23:49:006.4[facility] ElsyorfCTVSAYGMRS7026-94-28 23:49:004.05[facility] GtrywhlAOFZDJPGTU4789-91-08 23:49:0012.7[facility] MhihvobEEOVOFEZLJ4529-71-68 23:49:0038.2[facility] TegcinfLOJJUZOCTM9622-02-94 23:49:0094.3[facility] [place] JQLGWPDQNM8724-18-28 23:49:00* Test Item Value Reference Range Interpretation Comments MCH (test code = MCH) 31.5 pg 27.0-31.0 [facility] GvjgzitHTMWSSRHBB4128-50-19 23:49:0033.4[facility] HermannHEMATOLOGY 2019-09-30 23:49:0015.4[facility] NyzfkmnJWALOARZHH5664-64-44 23:49:41801Fmkysowh HocjdttZTEGQLMWLB5876-79-53 23:49:009.4[facility] WufqihpDIDOFOGMVW1642-16-69 23:49:0055.5[facility] TgphgewZTMVCRFGCF7420-04-86 23:49:0032.4[facility] [place] HOFFBRRNXB4479-38-12 23:49:009.7[facility] IrokmnlWFNSRDVMQR6505-58-10 23:49:001.9 [facility] DaixltnTWIQTLRWOZ3951-62-13 23:49:000.5[facility] HermannHEMATOLOGY 2019-09-30 23:49:003.6[facility] FleefngGGFSEJIVSV9784-96-19 23:49:002.1[facility] LpkexpeOXNHXLHKRQ2876-01-50 23:49:000.6[facility] AqcrxrmQNRRNLSJTE6781-30-72 23:49:000.1[facility] MpvzxvqZETFRVVWQZ2662-33-78 23:49:00<2 (09/30/19 6:49 PM) [facility] RmretliTYPOCAIFCO7335-01-76 23:49:00<3[facility] HermannTOXICOLOGY 2019-09-30 23:49:00<0.003[facility] IuayfbyTXGIYETWUH9099-31-56 23:49:006.1 [facility] HermannDRUG KSXWNN4921-63-48 23:30:00Negative *NA*(09/30/19 6:30 PM) [facility]annDRUG KUVKJD2359-46-22 23:30:00Negative *NA*(09/30/19 6:30 PM) [facility]annDRUG [id number] 23:30:00Negative *NA*(09/30/19 6:30 PM) [facility]annDR[facility] YYEIVZ5837-29-85 23:30:00Negative *NA*(09/30/19 6:30 PM) [facility] HermannDRUG ZAMRET0290-05-06 23:30:00Positive *ABN*(09/30/19 6:30 PM) [facility]annDRUG ULMYBT5139-08-49 23:30:00Negative *NA*(09/30/19 6:30 PM) [facility]annDRUG VYSYGX8877-30-07 23:30:00Negative *NA*(09/30/19 6:30 PM) [facility]annDRUG AYDEFK3449-29-36 23:30:00See Note (09/30/19 6:30 PM)[facility]] CORTISOL, [id number] 10:31:01* Test Item Value Reference Range Interpretation Comments Cortisol (test code = Cortisol) 8.2 ug/dL ADULT RANGE:8AM 6.0 - 23.0 ug/dL4PM 3.0 - 16.0 ug/dL [facility]] [id number] 10:31:01* Test Item Value Reference Range Interpretation Comments Prolactin Lvl (test code = 2842-3) 19.0 ng/ml Male: 2.1-17.7 ng/mLFemale: Non- 2.8-29.2 ng/mL 9.7-208.5 ng/mL Postmenopausal 1.8-20.3 ng/mL [facility]] TESTOSTERONE, [id number] 10:31:01* Test Item Value Reference Range Interpretation Comments Testosterone Tot (test code = 2986-8) 44 ng/dl This assay is standardized to the CDC reference method for which the harmonizednormal range in healthy males age 19 - 39 is 264 - 916 ng/dLThe reference ranges for this assay determined by the repairer art objects are:Adult males <= 50 years 113-1065 ng/dLAdult males > 50 years 95-948 ng/dLPremenopausal females 9-53 ng/dLPost-menopausal females <8- 48 ng/dL [facility]] TSH, 3RD GENERATION W/REFLEX TO FT4 2019-03-12 10:31:01* Test Item Value Reference Range Interpretation Comments TSH (test code = 12132-7) 1.890 {uIU/ml} 0.360-3.740 [facility]] ACTH, [id number] 10:31:01* Test Item Value Reference Range Interpretation Comments ACTH Level (test code = 2141-0) 9 pg/ml 0-46 [facility]] Hemoglobin and Eambzgbgab6108-49-46 09:17:01 * Test Item Value Reference Range Interpretation Comments Hgb (test code = 718-7) 14.5 g/dl 14.0-18.0 Hct (test code = 92837-9) 43.7 % 42.0-54.0 [facility]] TESTOSTERONE, FREE AND TOTAL, LC/MS/MS 2018-06-11 09:17:01* Test Item Value Reference Range Interpretation Comments Testosterone Tot; Below Low Threshold (test code = 2986-8) 3 8.5 ng/dl 264.0-916.0 This [facility] LC/MS-MS method is currently certified by the[facility] Hormone Standardization Program (HoSt). Adult malereference interval is based on a population of healthynonobese males (BMI <30) between 19 and 39 years old.Purnima et.al. JCEM 2017,102;0220-1107. PMID: [id number].This test was developed and its performance characteristicsdetermined by [facility]. It has not been cleared orapproved by the Food and Drug Administration. Testorone Free (test code = Testorone Free) 4.6 pg/ml 8.7-25.1 Performed At: [facility] [address] [place], [place] [id number] Willis MD Ph:[phone] [facility][QL] BASIC METABOLIC PANEL W/[id number] 11:13:01* Test Item Value Reference Range Interpretation Comments Glucose Lvl (test code = 2345-7) 73 mg/dl 70-99 Adult reference range values reflect the clinical guidelinesof the [place] [employer]. Blood Urea Nitrogen (test code = 3094-0) 14 mg/dl 7-22 Creatinine Lvl (test code = 2160-0) 1.20 mg/dl 0.50-1.40 Sodium Level (test code = 2951-2) 138 {mEq/l} 135-145 Potassium Level (test code = 2823-3) 4.1 {mEq/l} 3.5-5.1 Chloride Level (test code = 2075-0) 107 {mEq/l} 95-109 Carbon Dioxide; Below Low Threshold (test code = 8-9) 22 {mEq/l} 24-32 AGAP (test code = 36710-6) 13.1 {mEq/l} 10.0-20.0 Calcium Level Total (test code = 00918-8) 8.9 mg/dl 8.5-10.5 eGFR (test code = 41162-6) 78 {ML/MIN/1.7} The eGFR is calculated using the CKD-EPI formula. In most young, healthyindividuals the eGFR will be >90 mL/min/1.73m2. The eGFR declines with age. AneGFR of 60-89 may be normal in some populations, particularly the elderly, forwhom the CKD-EPI formula has not been extensively validated. Use of the eGFR isnot recommended in the following populations:Individuals with unstable creatinine concentrations, including patients and those with serious co-morbid conditions.Patients with extremes in muscle mass or diet.The data above are obtained from the National Kid[employer] Education Program(NKDEP) which additionally recommends that when the eGFR is used in patientswith extremes of body mass index for purposes of drug dosing, the eGFR shouldbe multiplied by the estimated BMI. [facility][H] Cortisol [id number] 10:32:01* Test Item Value Reference Range Interpretation Comments Cortisol Saliva (test code = 2142-8) 0.038 ug/dL Reference Range:Children and Adults:8:00a.m.: 0.025 - 0.600Noon: <0.010 - 0.3304:00p.m.: 0.010 - 0.200Midnight: <0.010 - 0.090Performed At: [facility] [id number] [place], [place] [id number] Samuel H MD Ph:[phone] [facility][H] Cortisol Free Urine 24 [id number] 10:32:01 * Test Item Value Reference Range Interpretation Comments U Creat mg/dL (test code = U Creat mg/dL) 196.4 mg/dl Not Estab. U24 Creatinine (test code = U24 Creatinine) 1571 {mg/day} 2712-8680 U Cortisol Free (test code = U Cortisol Free) 16 {UG/L} Undefine d U24 Denis Free (test code = U24 Denis Free) 13 {ug/24h} 0-50 This test was developed and its performance characteristicsdetermined by [facility]. It has not been cleared orapproved by the Food and Drug Administration.Performed At: [facility] [id number] Rigoberto Fuentes MD Ph:[phone] At: [facility] [id number] Diallo MD Ph:[phone] Total Volume (test code = Total Volume) 800 [facility][] CBC (without differential)2018-01-22 09:35:01 * Test Item Value Reference Range Interpretation Comments WBC (test code = 6690-2) 4.9 {K/CMM} 3.7-10.4 RBC; Below Low Threshold (test code = 789-8) 4.65 {M/CMM} 4.70-6.10 Hgb; Below Low Threshold (test code = 718-7) 13.9 g/dl 14.0-18.0 Hct; Below Low Threshold (test code = 12445-2) 41.3 % 42.0-54 .0 MCV (test code = 787-2) 88.9 fL 80.0-94.0 MCH (test code = 785-6) 29.9 pg 27.0-31.0 MCHC (test code = 786-4) 33.7 g/dl 32.0-36.0 RDW; Above High Threshold (test code = 788-0) 15.1 % 11.5-14. 5 Platelet (test code = 05067-4) 183 {K/CMM} 133-450 Mean Platelet Volume (test code = 47263-7) 9.7 fL 7.4-10.4 [facility]] PSA, [id number] 09:35:01* Test Item Value Reference Range Interpretation Comments Prostate Specific Antigen (test code = 2857-1) 0.41 ng/ml 0.00-4. 00 0-4 ng/ml is clinically accepted reference range from theAmerican Cancer Society in 1996 for Total PSA.A PSA value in the range of 0.1 to 0.6 ng/mL is indeterminateif being used as an indicator of recurrent or residual disease. [facility][] SEX HORMONE BINDING [id number] 09:35:01* Test Item Value Reference Range Interpretation Comments Sex Hormone Binding Globulin; Below Low Threshold (maria a t code = 01081-4) 7.6 nmol/L 13.0-71.0 [facility][H] Cortisol Free Urine 24 [id number] 18:08:01 * Test Item Value Reference Range Interpretation Comments U Creat mg/dL (test code = U Creat mg/dL) 254.6 mg/dl Not Estab. U24 Creatinine (test code = U24 Creatinine) 2419 {mg/day} 4698-2249 U Cortisol Free (test code = U Cortisol Free) 15 {UG/L} Undefine d U24 Denis Free (test code = U24 Denis Free) 14 {ug/24h} 0-50 This test was developed and its performance characteristicsdetermined by [facility]. It has not been cleared orapproved by the Food and Drug Administration.Performed At: [facility] [id number] Fuentes MD Ph:[phone] At: [facility] [id number] Diallo MD Ph:[phone] Total Volume (test code = Total Volume) 950 [facility]] T4, [id number] 09:07:01* Test Item Value Reference Range Interpretation Comments T4 Free (test code = 3024-7) 1.05 ng/dl 0.76-1.46 [facility]] TSH, 3RD GENERATION W/REFLEX TO FT4 2017-12-27 09:07:01* Test Item Value Reference Range Interpretation Comments TSH (test code = 93086-1) 1.530 {uIU/ml} 0.360-3.740 [facility]] CORTISOL, [id number] 09:07:01* Test Item Value Reference Range Interpretation Comments Cortisol (test code = Cortisol) 16.7 ug/dL ADULT RANGE:8AM 6.0 - 23.0 ug/dL4PM 3.0 - 16.0 ug/dL [facility]] [id number] 09:07:01* Test Item Value Reference Range Interpretation Comments Luteinizing Hormone (test code = 57387-5) 1.77 {miU/ml} LH pediatric ranges published in the literature* age(yrs) male(miu/ml) age(yrs) female(miu/ml) -------- -------- PrepubertalChildren: 2-8 0-0.3 2-8 0-0.3Puberty: <9.8 0-0.3 <9.2 0-0.3 9.8-14.5 0-4.9 9.2-13.7 0-4.7 10.7-15.4 0.2-5.0 10.0-14.4 0-12.0 11.8-17.3 0.4-7.0 10.7-18.6 0.4-11.7*[facility] has not established normalranges for the above age groups.Adult reference ranges: Male: 2.0 - 12.0 miu/ml Female: Follicular phase: 2.0-15.0 miu/ml Mid-cycle peak: 22.0-105.0 miu/ml Luteal phase: 0.6-19.0 miu/ml Post menopausal: 16.0-64.0 miu/ml [facility]] [id number] 09:07:01* Test Item Value Reference Range Interpretation Comments Prolactin Lvl (test code = 2842-3) 58.9 ng/ml Male: 2.1-17.7 ng/mLFemale: Non- 2.8-29.2 ng/mL 9.7-208.5 ng/mL Postmenopausal 1.8-20.3 ng/mL [facility]] [id number] 09:07:01* Test Item Value Reference Range Interpretation Comments Follicle Stimulating Hormone (test code = 88683-3) 1.5 {miU/ml} FSH pediatric ranges published in the literature* age(yrs) male(miu/ml) age(yrs) female(miu/ml) -------- -------- PrepubertalChildren: 2-8 0-3.0 2-8 1.0-4.2Puberty: <9.0 0-3.0 <9.2 1.0-4.2 9.8-14.5 1.8-3.2 9.2-13.7 1.0-10.8 10.7-15.4 1.2-5.8 10.0-14.4 1.5-12.8 11.8- 16.2 2.0-9.2 10.7-15.6 1.5-11.7 12.8-17.3 2.6- 11.0 11.8-18.6 1.0-9.2*[facility] has not established normalranges for the above age groups.Adult reference ranges: Male: 1.0 - 12.0 miu/ml Female: Follicular phase: 3.0-20.0 miu/ml Mid-cycle: 9.0-26.0 miu/ml Luteal phase: 1.0-12.0 miu/ml Post menopausal: 18.0-153.0 miu/ml [facility]] ACTH, [id number] 09:07:01* Test Item Value Reference Range Interpretation Comments ACTH Level; Above High Threshold (test code = 2141-0) 109 pg/ml 0-46 [facility]] TESTOSTERONE, FREE AND TOTAL, LC/MS/MS 2017-12-27 09:07:01* Test Item Value Reference Range Interpretation Comments Testosterone Tot; Below Low Threshold (test code = 2986-8) 4 8.0 ng/dl 264.0-916.0 This [employer] LC/MS-MS method is currently certified by [facility] Hormone Standardization Program (HoSt). Adult malereference interval is based on a population of healthynonobese males (BMI <30) between 19 and 39 years old.hai Felton.al. JCEM 2017,102;4555-0112. PMID: 01813491.This test was developed and its performance characteristicsdetermined by [facility]. It has not been cleared orapproved by the Food and Drug Administration. Testorone Free (test code = Testorone Free) 6.1 pg/ml 8.7-25.1 Performed At: [facility] [id number] Fuentes MD Ph:[phone] [facility]] IGF-1 [Somatomedin C]2017-12-27 09:07:01* Test Item Value Reference Range Interpretation Comments Insulin-Like Growth Factor I (test code = Insulin-Like Growth Factor I) 79 ng/ml 88-246 Performed At: [facility] [address] [id number] Fuentes MD Ph:[phone] [facility]] T4, [id number] 11:30:01* Test Item Value Reference Range Interpretation Comments T4 Free (test code = 3024-7) 1.12 ng/dl 0.76-1.46 [facility]] TSH, 3RD GENERATION W/REFLEX TO FT4 2017-09-12 11:30:01* Test Item Value Reference Range Interpretation Comments TSH (test code = 42435-0) 1.650 {uIU/ml} 0.360-3.740 [facility][H] [id number] 11:30:01* Test Item Value Reference Range Interpretation Comments Prolactin Lvl (test code = 2842-3) 48.7 ng/ml Male: 2.1-17.7 ng/mLFemale: Non- 2.8-29.2 ng/mL 9.7-208.5 ng/mL Postmenopausal 1.8-20.3 ng/mL Monomeric Prolactin Lvl (test code = Monomeric Prolactin Lvl) 54 ng /ml Reference Range:Children and Adults: 3 - 18 Macroprolactin % (test code = Macroprolactin %) 4 % Performed At: [facility] [address] [place], [place] [id number] Samuel H MD Ph:[phone] [facility]] [id number] 11:30:01* Test Item Value Reference Range Interpretation Comments Prolactin Lvl (test code = 2842-3) 48.7 ng/ml Male: 2.1-17.7 ng/mLFemale: Non- 2.8-29.2 ng/mL 9.7-208.5 ng/mL Postmenopausal 1.8-20.3 ng/mL [facility]] T4, [id number] 10:19:01* Test Item Value Reference Range Interpretation Comments T4 Free (test code = T4 Free) 1.14 ng/dl 0.76-1.46 [facility]] TSH, 3RD GENERATION W/REFLEX TO FT4 2017-06-05 10:19:01* Test Item Value Reference Range Interpretation Comments TSH (test code = 84240-2) 2.550 {uIU/ml} 0.360-3.740 [facility]] THYROID PEROXIDASE [id number] 10:19:01* Test Item Value Reference Range Interpretation Comments Thyroid Peroxidase (TPO) Antibody (test code = Thyroid Peroxidase (TPO) Antibody) 41 {IU/ml} <=60 [facility][] SEX HORMONE BINDING [id number] 10:19:01* Test Item Value Reference Range Interpretation Comments Sex Hormone Binding Globulin (test code = Sex Hormone Binding Globulin) 6.4 nmol/L 13.0-71.0 [facility] Brain Pituitary w/wo contrast [id number] 12:45:00Patient Name: JULIUS MOE: 1980; Age: 36 years y/o MaleMR: [id number]: Brain Pituitary w/wo contrast MRI 05/13/2017 12:45 PM CSTClinical Indication: E22.1 Hyperprolactinemia - E22.1 Hyperprolactinemia; Comparison: NoneTECHNIQUE: Multiplanar MRI of the brain is performed with pituitary protocolincluding thin section sellar pre and post Gadolinium contrast enhanced imageson a 3 Alysha magnet.Contrast: 20 cc of gadolinium was administered.FINDINGS:PITUITARY: There is a normal appearance of the pituitary stalk withoutdeviation. The dynamic contrast-enhanced images through the sella turcica arenormal. No mass lesion is present. The posterior pituitary region appearsunremarkable. The hypothalamus, mammillary body, superior and inferiorcolliculi are unremarkable.BRAIN PARENCHYMA: The visualized brain parenchyma has normal signal, withnormal abdi-white junction, sulci and gyri. There is no mass effect or midlineshift. There is no extra-axial fluid collection, intraparenchymal hemorrhages.The ventricles and cisterns are normal. There are no diffusion-weightedabnormalities to suggest acute/subacute ischemia. The corpus callosum isnormal. The expected intracranial flow-voids are present. The venous sinusesare grossly unremarkable. The optic chiasm and sella are unremarkable. Themidbrain, darrius and medulla are unremarkable. The cerebellum is unremarkable.The craniocervical junction is normal. VISUALIZED EXT RACRANIAL ANATOMY: Mild pansinus mucosal thickening withoutair-fluid levels. The nasopharynx region appears unremarkable. The mastoid aircell regions appear unr emarkable. The visualized parotid regions appearunremarkable.IMPRESSION:No evid ence of pituitary adenoma.Mild pansinus mucosal thickening.Otherwise unremarkabl e MRI of the brain and pituitary gland.--Read by: Jahaira Hendrickson pDictated Date/time: 05/13/17 15:15Electronically Signed by: Chad Hendrickson 05/13/1814:29FINAL [facility]PORTUn[facility] [[facility]] [id number] 09:06:01* Test Item Value Reference Range Interpretation Comments Luteinizing Hormone (test code = Luteinizing Hormone) 1.93 {miU/ml} LH pediatric ranges published in the literature* age(yrs) male(miu/ml) age(yrs) female(miu/ml) -------- -------- PrepubertalChildren: 2-8 0-0.3 2-8 0-0.3Puberty: <9.8 0-0.3 <9.2 0-0.3 9.8-14.5 0-4.9 9.2-13.7 0-4.7 10.7-15.4 0.2-5.0 10.0-14.4 0-12.0 11.8-17.3 0.4- 7.0 10.7-18.6 0.4-11.7*[facility] has not established normalranges for the above age groups.Adult reference ranges: Male: 2.0 - 12.0 miu/ml Female: Follicular phase: 2.0-15.0 miu/ml Mid-cycle peak: 22.0-105.0 miu/ml Luteal phase: 0.6-19.0 miu/ml Post menopausal: 16.0-64.0 miu/ml [facility]] [id number] 09:06:01* Test Item Value Reference Range Interpretation Comments Follicle Stimulating Hormone (test code = Follicle Sti mulating Hormone) 0.8 {miU/ml} FSH pediatric ranges published in the literature* age(yrs) male(miu/ml) age(yrs) female(miu/ml) -------- -------- PrepubertalChildren: 2-8 0-3.0 2-8 1.0-4.2Puberty: <9.0 0-3.0 <9.2 1.0-4.2 9.8-14.5 1.8-3.2 9.2-13.7 1.0-10.8 10.7-15.4 1.2-5.8 10.0-14.4 1.5-12.8 11.8-16.2 2.0-9.2 10.7-15.6 1.5-11.7 12.8-17.3 2.6-11.0 11.8-18.6 1.0-9.2*[facility] has not established normalranges for the above age groups.Adult reference ranges: Male: 1.0 - 12.0 miu/ml Female: Follicular phase: 3.0-20.0 miu/ml Mid-cycle: 9.0-26.0 miu/ml Luteal phase: 1.0-12.0 miu/ml Post menopausal: 18.0-153.0 miu/ml [facility]] TESTOSTERONE, FREE AND TOTAL, LC/MS/MS 2017-05-03 09:06:01* Test Item Value Reference Range Interpretation Comments Testosterone Tot (test code = Testosterone Tot) 81.8 ng/dl 264.0- 916.0 This [facility] LC/MS-MS method is currently certified by the[facility] Hormone Standardization Program (HoSt). Adult malereference interval is based on a population of healthynonobese males (BMI <30) between 19 and 39 years old.Purnima et.al. JCEM 2017,102;3288-3464. PMID: 70559316.This test was developed and its performance characteristicsdetermined by [facility]. It has not been cleared orapproved by the Food and Drug Administration. Testorone Free (test code = Testorone Free) 6.4 pg/ml 8.7-25.1 Performed At: [address] [id number] Fuentes MD Ph:[phone] [facility]] T4, [id number] 08:52:01* Test Item Value Reference Range Interpretation Comments T4 Free (test code = T4 Free) 1.01 ng/dl 0.76-1.46 [facility]] TSH, 3RD GENERATION W/REFLEX TO FT4 2017-04-12 08:52:01* Test Item Value Reference Range Interpretation Comments TSH; Above High Threshold (test code = 82069-9) 4.060 {uIU/ml} 0.36 0-3.740 [facility]] T3, [id number] 08:52:01* Test Item Value Reference Range Interpretation Comments T3 Total (test code = T3 Total) 1.18 ng/ml 0.60-1.81 [facility]] CORTISOL, [id number] 08:52:01* Test Item Value Reference Range Interpretation Comments Cortisol (test code = Cortisol) 10.3 ug/dL ADULT RANGE:8AM 6.0 - 23.0 ug/dL4PM 3.0 - 16.0 ug/dL [facility]] [id number] 08:52:01* Test Item Value Reference Range Interpretation Comments Follicle Stimulating Hormone (test code = Follicle Sti mulating Hormone) 1.4 {miU/ml} FSH pediatric ranges published in the literature* age(yrs) male(miu/ml) age(yrs) female(miu/ml) -------- -------- PrepubertalChildren: 2-8 0-3.0 2-8 1.0-4.2Puberty: <9.0 0-3.0 <9.2 1.0-4.2 9.8-14.5 1.8-3.2 9.2-13.7 1.0-10.8 10.7-15.4 1.2-5.8 10.0-14.4 1.5-12.8 11.8-16.2 2.0-9.2 10.7-15.6 1.5-11.7 12.8-17.3 2.6-11.0 11.8-18.6 1.0-9.2*[facility] has not established normalranges for the above age groups.Adult reference ranges: Male: 1.0 - 12.0 miu/ml Female: Follicular phase: 3.0-20.0 miu/ml Mid-cycle: 9.0-26.0 miu/ml Luteal phase: 1.0-12.0 miu/ml Post menopausal: 18.0-153.0 miu/ml [facility]] [id number] 08:52:01* Test Item Value Reference Range Interpretation Comments Luteinizing Hormone (test code = Luteinizing Hormone) 1.61 {miU/ml} LH pediatric ranges published in the literature* age(yrs) male(miu/ml) age(yrs) female(miu/ml) -------- -------- PrepubertalChildren: 2-8 0-0.3 2-8 0-0.3Puberty: <9.8 0-0.3 <9.2 0-0.3 9.8-14.5 0-4.9 9.2-13.7 0-4.7 10.7-15.4 0.2-5.0 10.0-14.4 0-12.0 11.8-17.3 0.4- 7.0 10.7-18.6 0.4-11.7*[facility] has not established normalranges for the above age groups.Adult reference ranges: Male: 2.0 - 12.0 miu/ml Female: Follicular phase: 2.0-15.0 miu/ml Mid-cycle peak: 22.0-105.0 miu/ml Luteal phase: 0.6-19.0 miu/ml Post menopausal: 16.0-64.0 miu/ml [facility]] [id number] 08:52:01* Test Item Value Reference Range Interpretation Comments Prolactin Lvl (test code = Prolactin Lvl) 49.3 ng/ml Male: 2.1-17.7 ng/mLFemale: Non- 2.8-29.2 ng/mL 9.7-208.5 ng/mL Postmenopausal 1.8-20.3 ng/mL [facility]] IGF-1 [Somatomedin C]2017-04-12 08:52:01* Test Item Value Reference Range Interpretation Comments Insulin-Like Growth Factor I (test code = Insulin-Like Growth Factor I) 82 ng/ml 88-246 Performed At: [facility] [address] [id number] Fuentes MD Ph:[phone] [facility][H] [id number] 08:52:01* Test Item Value Reference Range Interpretation Comments Prolactin Lvl (test code = Prolactin Lvl) 59 ng/ml Hook effect or prozone effect has been ruled out byperforming additional dilution analysis on all prolactintesting.Reference Range:Children and Adult Males: 3 - 18 Monomeric Prolactin Lvl (test code = Monomeric Prolactin Lvl) 54 ng /ml Reference Range:Children and Adults: 3 - 18 Macroprolactin % (test code = Macroprolactin %) 8 % Performed At: [facility] [address] [place] [id number] Mahan MD Ph:[phone] [facility]] TESTOSTERONE, FREE AND TOTAL, LC/MS/MS 2017-04-12 08:52:01* Test Item Value Reference Range Interpretation Comments Testosterone Tot (test code = Testosterone Tot) 51.2 ng/dl 264.0- 916.0 This [facility] LC/MS-MS method is currently certified by [facility] Hormone Standardization Program (HoSt). Adult malereference interval is based on a population of healthynonobese males (BMI <30) between 19 and 39 years old.Purnima et.al. JCEM 2017,102;9461-2003. PMID: 73511083.This test was developed and its performance characteristicsdetermined by [facility]. It has not been cleared orapproved by the Food and Drug Administration. Testorone Free (test code = Testorone Free) 5.0 pg/ml 8.7-25.1 Performed At: [facility] [address] [id number] Fuentes MD Ph:[phone] [facility]] ACTH, [id number] 08:52:01* Test Item Value Reference Range Interpretation Comments ACTH Level (test code = ACTH Level) 67 pg/ml 0-46 [facility] PhysiciansTobacco Use Ddyfvzumw3098-14-16 16:40:00* Test Item Value Reference Range Interpretation Comments Completed (test code = Completed) DONE [facility] [id number] 21:30:00Negative *NA*(01/25/16 4:30 PM)[facility] [id number] 19:05:0086[facility]annCHE[facility] PJEHE0244-70-67 19:05:68281Mkhulltc HermannCHEM WMGCE5147-73-87 19:05:0023[facility] HOHCU1678-27-07 19:05:009.1[facility] XGEPA8329-18-08 19:05:004.3[facility] [id number] 19:05:01212 [facility] SKKRO4643-05-25 19:05:48737Tuswgghh HermannCHEM PANEL 2016-01-25 19:05:001.26[facility]ann[facility] CFBVK4655-70-53 19:05:0017[facility]annCHE[facility] HYDVH5405-07-37 19:05:0012.3[facility] PkbpdouROZXVQYEPL9034-38-39 19:05:004.74[facility] VfxlmsoRAQOVRERXV5414-32-76 19:05:008.7[facility]ad SIVPZDRHRB7516-98-05 19:05:0033.4[facility] LdcdfzvIPEXCXUUGG5905-86-35 19:05:00 14.9[facility] MvbolrzHOKFKKRUPC1214-21-29 19:05:81242Qyicytij HermannHEMATOLOGY 2016-01-25 19:05:009.9[facility] FargrddKJBKRDHFRE9052-11-28 19:05:0014.5[facility] MilemmjUOOFEHXUKF8697-08-82 19:05:0043.4[facility] MepzmpyUGCEKVMOKT1383-74-68 19:05:0091.4[facility] UzuqjkfLAVFPNHZSW9458-88-55 19:05:00* Test Item Value Reference Range Interpretation Comments MCH (test code = MCH) 30.5 pg 27.0-31.0 [facility] ExduzbaDXCHZUDLKI7657-28-38 19:05:000.1[facility] HermannHEMATOLOGY 2016-01-25 19:05:001.4[facility] BpxdxzlJUQYEPAROR1567-66-77 19:05:002.3[facility] VormbjtWPRXJYZYXW7055-79-57 19:05:005.0[facility] OsgspxeLQJQGWUZNT5901-03-25 19:05:0026.0[facility] HqnlebqUFHKHHPZZR7376-53-18 19:05:001.0[facility] [place] XNJWAWROXH7287-55-46 19:05:0014.0[facility] GvluxrxLTYBREQIUM8438-17-97 19:05:00 Normal (01/25/16 2:05 PM)[facility] XdnteabNAMNRNQWRD0972-73-45 19:05:0043.0 [facility] DcelmmoYFYVASTIKY9766-09-27 19:05:00Normal (01/25/16 2:05 PM)[facility] SascgeiEXJAQEHHPC7738-06-63 19:05:0016.0[facility] LpffyluKVYZKPJPCP4994-95-51 19:05:000.0[facility] [place]
--- OUTSIDE RECORDS SUMMARY | 2019-12-18 19:52 | XMS REPORT | Continuity of Care Document ---
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 History Date Source Social History TypeResponse Smoking Status Former smoker; Type: Cigarettes; Ready to change: No; Concerns about tobacco use in household: No; Exposure to Tobacco Smoke None; Cigarette Smoking Last 365 Days No; Reg Smoking Cessation Counseling No entered on: 09/30/19 09/30/2019 [facility] Social History TypeResponse Smoking Status Former smoker; Type: Cigarettes; Ready to change: No; Concerns about tobacco use in household: No; Exposure to Tobacco Smoke None; Cigarette Smoking Last 365 Days No; Reg Smoking Cessation Counseling No entered on: 01/25/16 01/25/2016 [id number] Social History TypeResponse Smoking Status Former smoker; Type: Cigarettes; Ready to change: No; Concerns about tobacco use in household: No; Exposure to Tobacco Smoke None; Cigarette Smoking Last 365 Days No; Reg Smoking Cessation Counseling No 01/25/2016 [facility] Family History No Data Provided for This Section Advance Directives No Data Provided for This Section Functional Status No Data Provided for This Section
[2019-12-18 20:07] LABS: BILIRUBIN,URINE SMALL (NEGATIVE); CLARITY,URINE SL CLOUDY (CLEAR); KETONES,URINE 1+ (NEGATIVE); LEUKOCYTE ESTERASE ,URINE NEGATIVE (NEGATIVE); NITRITE,URINE NEGATIVE (NEGATIVE); PROTEIN,URINE DIPSTICK TRACE (NEGATIVE); URINE UROBILINOGEN 1 mg/dL (0.2 - 1)
[2019-12-18 20:08] LABS: COLOR,URINE AMBER (YELLOW)
[2019-12-18 20:18] LABS: BACTERIA,URINE FEW /HPF; MUCUS,URINE MANY (RARE)
--- NOTE | 2019-12-18 21:21 | Diagnostic Imaging Report ---
X-ray : Single view of the pelvis. HISTORY: Pain. COMPARISON: None available. FINDINGS: Bones/joints: No acute fracture or dislocation. The sacroiliac joints are symmetric. No pubic symphyseal widening. The sacrum is obscured by overlying bowel gas. Soft tissues: No focal soft tissue abnormality. Others: The partially imaged lower abdomen demonstrates normal bowel gas pattern. IMPRESSION: No acute radiographic abnormality. Signed by: Lesly Lerma MD on 12/18/2019 9:17 PM
== END 2019-12-18 21:48 | disposition home or self-care (01) ==
LOC: ER 19:44
DX: R10.2 Pelvic and perineal pain (principal); I10 Essential (primary) hypertension; E03.9 Hypothyroidism, unspecified; E78.5 Hyperlipidemia, unspecified; F41.9 Anxiety disorder, unspecified
CPT/HCPCS: 72170; 81001; 99283